=== PATIENT | female | born 1960 | race Caucasian/White ===

== ENCOUNTER 2024-01-17 19:27 | Emergency (ER) | payer BC ==
[~2024-01-17] VITALS: Ht 165.1 cm; Wt 50.0 kg
[2024-01-17 19:39] VITALS: O2SAT 100
[2024-01-17] MEDS ORDERED: IBUP-2029 MT (20:26)
[2024-01-17] MEDS: HYDROCODONE/ACETAMINOPHEN 5/325MG TABLET PO ONE (20:35)
[2024-01-17 21:30] VITALS: BP 101/57; PULSE 85; RESP 17; TEMP 36.66960; O2SAT 95
== END 2024-01-17 21:39 | disposition home or self-care (01) ==
LOC: ER 19:27
DX: S83.91XA Sprain of unspecified site of right knee, initial encounter (principal); Z88.0 Allergy status to penicillin; Z88.8 Allergy status to other drugs, medicaments and biological substances; X58.XXXA Exposure to other specified factors, initial encounter; Y93.89 Activity, other specified; Y92.89 Other specified places as the place of occurrence of the external cause; Y99.8 Other external cause status
CPT/HCPCS: 73562; 99283